=== PATIENT | female | born 1955 | race Caucasian/White ===

== ENCOUNTER 2017-12-23 14:29 | Outpatient (CLI) | payer OTHER ==
--- NOTE | 2017-12-24 13:35 | Mammography Report ---
Procedure Date: 12/23/2017 Accession Number: [id number] / [id number] Procedure: MGS - Screening Mammo Dig Bilat CPT Code: FULL RESULT: EXAM: Screening Mammo Dig Bilat DATE: 12/23/2017 2:46 PM CLINICAL HISTORY: 61-year-old nulliparous patient for screening TECHNIQUE: Bilateral CC, laterally exaggerated CC, MLO views were obtained. COMPARISON: 04/28/2011, 06/20/2008 FINDINGS: The breasts demonstrate heterogeneously dense fibroglandular parenchyma bilaterally. Coarse and punctate, typically benign calcifications are present. No suspicious masses, clustered microcalcifications, or regions of architectural distortion are identified. IMPRESSION: Benign findings RECOMMENDATION: Routine annual screening unless otherwise clinically indicated. BIRADS CATEGORY 2: Benign findings STANDARD QUALIFYING STATEMENTS: 1. This examination was reviewed with the aid of Computer-Aided Detection (CAD). 2. A negative or benign imaging report should not delay biopsy if clinically suspicious findings are present. Consider surgical consultation if warrented. More than 5% of cancers are not identified by imaging. 3. Dense breasts may obscure an underlying neoplasm.
== END 2017-12-23 14:30 | disposition home or self-care (01) ==
LOC: DI.S 14:29
PROVIDERS: ATTEND Registered Nurse
DX: Z12.31 Encounter for screening mammogram for malignant neoplasm of breast (principal)
CPT/HCPCS: 77067

== ENCOUNTER 2019-04-11 14:21 | Outpatient (CLI) | payer OTHER ==
--- NOTE | 2019-04-13 08:08 | XRAY Report ---
Reason: JAW L R Procedure Date: 04/11/2019 Accession Number: [id number] / [id number] Procedure: XRS - Mandible Bilat CPT Code: FULL RESULT: EXAM: MANDIBLE RADIOGRAPHY EXAM DATE: 04/11/2019 02:46 PM. HISTORY: Injury to jaw while carrying a wooden chair, patient tripped and chair jammed into her jaw. COMPARISONS: None. TECHNIQUE: 4 views. FINDINGS: Bones: On the AP closed mouth view, there is a subtle discontinuity suggested at the left mandibular ramus. This could be artifactual or indicate a nondisplaced fracture. Elsewhere, the mandible appears intact. Temporomandibular Joints: Normal. The temporomandibular joints are normally located and symmetric. Sinuses: Normal. No opacities or fluid levels. Other: Normal. No soft tissue swelling. IMPRESSION: Subtle discontinuity suggested of the left mandibular ramus on one view. Cannot exclude a nondisplaced fracture. This could be further evaluated by CT. RADIA
== END 2019-04-11 14:22 | disposition home or self-care (01) ==
LOC: DI.S 14:21
PROVIDERS: ATTEND Chiropractor
DX: S09.93XA Unspecified injury of face, initial encounter (principal); R68.84 Jaw pain; S13.8XXA Sprain of joints and ligaments of other parts of neck, initial encounter; M99.11 Subluxation complex (vertebral) of cervical region
CPT/HCPCS: 70110

== ENCOUNTER 2022-03-01 14:13 | Outpatient (CLI) | payer OTHER, MEDICARE | END 2022-03-01 14:14 | disposition critical access hospital (66) | LOC: EMS 14:13 | DX: S49.92XA Unspecified injury of left shoulder and upper arm, initial encounter (principal); S01.112A Laceration without foreign body of left eyelid and periocular area, initial encounter; W01.0XXA Fall on same level from slipping, tripping and stumbling without subsequent striking against object, initial encounter; Y92.511 Restaurant or cafe as the place of occurrence of the external cause; Y99.0 Civilian activity done for income or pay | CPT/HCPCS: A0425; A0427 ==

== ENCOUNTER 2022-03-01 14:39 | Emergency (ER) | payer OTHER ==
[2022-03-01] MEDS ORDERED: fentaNYL 100 MCG/2 ML VIAL IVP STA (14:48)
[2022-03-01] MEDS ORDERED: KETOROLAC 15 MG/ML VIAL IVP STA (14:49)
--- NOTE | 2022-03-01 14:52 | ED Physician Documentation ---
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 She fell onto her left shoulder and has pain and swelling there. Abrasion to the eyebrow but no other injury.) Where injury occurred: Work Timing - onset: How many hours ago (1) Timing - details: Abrupt onset, Still present Worsened by: Moving, Palpating (left shoulder) Associated symptoms: Swelling (left shoulder). No: Weakness, Numbness Contributing factors: No: Anticoagulated, Prosthetic joint Similar symptoms before: Has not had sx before Recently seen: Not recently seen Review of Systems Eyes: denies: Loss of vision, Photophobia Neurologic: denies: Focal weakness, Numbness, Altered mental status, Headache, Head injury PD PAST MEDICAL HISTORY - Past Medical History Cardiovascular: Hypertension Musculoskeletal: None - Past Surgical History Past Surgical History: Yes General: Appendectomy - Present Medications Home Medications: Ambulatory Orders Medication Instructions Recorded Confirmed lisinopriL [Lisinopril] 10 mg PO DAILY 02/23/16 02/23/16 Ibuprofen [Motrin] 400 mg PO TID #30 tablet 03/01/22 oxyCODONE [Roxicodone] 5 mg PO Q6H PRN #20 tablet 03/01/22 - Allergies Allergies/Adverse Reactions: Allergies Allergy/AdvReac Type Severity Reaction Status Date / Time naproxen Allergy Hives Verified 03/01/22 15:00 - Social History Does the pt smoke?: No Smoking Status: Former smoker Does the pt drink ETOH?: Yes Does the pt have substance abuse?: No - Immunizations Immunizations are current?: Yes PD ED PE NORMAL - Vitals Vital signs reviewed: Yes - General General: Alert and oriented X 3, Well developed/nourished - HEENT HEENT: PERRL, EOMI, Other (abrasions several small few mm sized on left forehead.) - Neck Neck: Supple, no meningeal sign, No bony TTP, No adenopathy - Cardiac Cardiac: RRR, No murmur - Respiratory Respiratory: Clear bilaterally, Other (no chestwall tenderness) - Abdomen Abdomen: Soft, Non tender - Derm Derm: Normal color, Warm and dry - Extremities Extremities: Other (holding left arm guardedly to her side. ) - Neuro Neuro: Alert and oriented X 3, No motor deficit, No sensory deficit, Normal speech Results - Vitals Vitals: Vital Signs - 24 hr 03/01/22 03/01/22 15:00 16:31 Temperature 37.0 C 37.1 C Heart Rate 92 82 Respiratory 16 16 Rate Blood Pressure 112/99 H 167/89 H O2 Saturation 97 97 Oxygen O2 Source Room air - Rads (name of study) left shoulder Radiology: Prelim report reviewed (impacted humeral neck fracture. Nonangulated. ), See rad report PD MEDICAL DECISION MAKING - ED course Complexity details: reviewed results, considered differential (fracture impacted proximal humeral neck left side. ), d/w patient Departure - Departure Disposition: 01 Home, Self Care Clinical Impression: Proximal humerus fracture Qualifiers: Encounter type: initial encounter Fracture type: closed Fracture morphology: other fracture Fracture alignment: nondisplaced Laterality: left Qualified Code(s): S42.295A - Other nondisplaced fracture of upper end of left humerus, initial encounter for closed fracture Accidental fall Qualifiers: Encounter type: initial encounter Qualified Code(s): W19.XXXA - Unspecified fall, initial encounter Condition: Stable Record reviewed to determine appropriate education?: Yes Instructions: ED Fx Shoulder Prescriptions: Ibuprofen [Motrin] 400 mg PO TID #30 tablet oxyCODONE [Roxicodone] 5 mg PO Q6H PRN #20 tablet PRN Reason: Pain Comments: You do have a fracture of the shoulder portion of the humerus which is the upper arm bone. It is not out of place and should heal with time and just less motion with use of a sling. Its okay to have the sling off briefly for showers changing close or similar. You will want to have it on much of the rest of the time to reduce the amount of motion. Anti-inflammatories such as ibuprofen 3 times daily with food for the next week or so. To that add Tylenol every 4-6 hours if needed for pain. To that add oxycodone every 6 hours if needed for worse pain. Follow-up with orthopedics in about 7 to 10 days. Call Wednesday for an appointment. At that point though we will see if its holding proper position and starting to heal up well enough and whether you can advance exercises and slight range of motion. For now do not worry about any exercises or therapy but just allow the swelling to go down and early healing. Ice or cool towels to the area periodically tonight and tomorrow for helping reduce swelling. This will be hurting a fair amount initially and should decrease as the swelling goes down. Off work for likely 4 to 5 days. You then will need another month of just having the arm in the sling and no lifting push pull or overhead reaching for sure. Progress or advance activity or exercises per the orthopedist on follow-up. I sent your prescriptions to [facility] pharmacy in [place]. My narcotic instructions I am prescribing a short course of narcotic pain medication for you. These are potentially dangerous and addictive medications that should be used carefully. These medications may constipate you. Take an jebm-gnd-rhlqqat stool softener such as docusate twice daily with plenty of water while taking these medicati ons. If you go 24 hours without a bowel movement, take lzwf-svv-qvchncf MiraLAX, per package instructions. Do not drink or drive while taking these medications. If you received narcotic or sedating medications while in the emergency department do not drive for 24 hours. Store this medication in a safe, secure place and out of reach of children. It is a violation of federal law to give or sell this medication to another person or to use in a manner other than prescribed. The ED will not refill narcotic prescriptions, including prescriptions lost or stolen. You can dispose of unwanted medications at the [facility]'s office or at several pharmacies such as [facility]. Forms: Activity restrictions Discharge Date/Time: 03/01/22 16:33
--- NOTE | 2022-03-01 15:32 | XRAY Report ---
PROCEDURE: Humerus LT INDICATIONS: fall to left shoulder TECHNIQUE: 2 views of the humerus were acquired. COMPARISON: None. FINDINGS: Bones: Displaced impacted fracture at the surgical neck of the humerus. No suspicious bony lesions. Soft tissues: No suspicious soft tissue calcifications. IMPRESSION: Minimally displaced impacted fracture of the proximal humerus. Reviewed by: Bob Jason MD on 03/01/2022 2:31 PM ALEYDA Approved by: Bob Jason MD on 03/01/2022 2:31 PM ALEYDA Station ID: [id number]
[2022-03-01 16:33] VITALS: BP 167/89
== END 2022-03-01 16:33 | disposition home or self-care (01) ==
LOC: EDUNIT# → ED 14:39
DX: S42.295A Other nondisplaced fracture of upper end of left humerus, initial encounter for closed fracture (principal); S42.212A Unspecified displaced fracture of surgical neck of left humerus, initial encounter for closed fracture; W01.0XXA Fall on same level from slipping, tripping and stumbling without subsequent striking against object, initial encounter; Y93.G9 Activity, other involving cooking and grilling; Y92.511 Restaurant or cafe as the place of occurrence of the external cause; Y99.0 Civilian activity done for income or pay; Z87.891 Personal history of nicotine dependence
CPT/HCPCS: 1040M; 73060; 96374; 96375; 99283; 99284

== ENCOUNTER 2022-03-09 08:00 | Outpatient (CLI) | payer OTHER ==
--- NOTE | 2022-03-09 10:31 | XRAY Report ---
PROCEDURE: Shoulder 3 View LT INDICATIONS: LEFT SHOULDER FX TECHNIQUE: 4 views of the shoulder were acquired. COMPARISON: X-ray left humerus, 03/01/2022. FINDINGS: Bones: There is a comminuted humeral head and neck fracture with mild impaction and displacement. Com pared to last exam, there is stable alignment. No suspicious bony lesions. Visualized ribs appear in tact. Soft tissues: No suspicious soft tissue calcifications. IMPRESSION: Stable proximal left humeral fracture. Reviewed by: Miguel Solano MD on 03/09/2022 10:29 AM PDT Approved by: Miguel Solano MD on 03/09/2022 10:29 AM PDT Station ID: [id number]
== END 2022-03-09 23:59 | disposition home or self-care (01) ==
LOC: DI.WOS 08:00
PROVIDERS: ATTEND Orthopaedic Surgery
DX: S42.292A Other displaced fracture of upper end of left humerus, initial encounter for closed fracture (principal)

== ENCOUNTER 2022-03-17 08:00 | Outpatient (CLI) | payer OTHER ==
--- NOTE | 2022-03-18 08:35 | XRAY Report ---
PROCEDURE: Shoulder 2 View LT INDICATIONS: SHOULDER FX TECHNIQUE: 2 views of the shoulder were acquired. COMPARISON: None. FINDINGS: When compared with 03/09/2022 exam, there is no significant change in the appearance of comminuted mi ldly displaced to fractures of the left humeral head and neck. There is no evidence of significant in terval healing. IMPRESSION: No significant change in appearance of left humeral head and neck fracture. Reviewed by: Gigi Ulloa MD on 03/18/2022 8:34 AM PDT Approved by: Gigi Ulloa MD on 03/18/2022 8:34 AM PDT Station ID: [id number]
== END 2022-03-17 23:59 | disposition home or self-care (01) ==
LOC: DI.WOS 08:00
PROVIDERS: ATTEND Orthopaedic Surgery
DX: S42.232A 3-part fracture of surgical neck of left humerus, initial encounter for closed fracture (principal)

== ENCOUNTER 2022-04-16 08:00 | Outpatient (CLI) | payer OTHER ==
--- NOTE | 2022-04-16 14:17 | XRAY Report ---
PROCEDURE: Shoulder 2 View LT INDICATIONS: LEFT SHOULDER FRACTURE TECHNIQUE: 2 views of the shoulder were acquired. COMPARISON: 03/17/2022. FINDINGS/IMPRESSION: 1. Small amount of bridging bony callus formation since prior study, with otherwise unchanged appeara nce of comminuted left humeral head/neck fractures. Reviewed by: Gigi Ulloa MD on 04/16/2022 2:15 PM PDT Approved by: Gigi Ulloa MD on 04/16/2022 2:15 PM PDT Station ID: [id number]
== END 2022-04-16 23:59 | disposition home or self-care (01) ==
LOC: DI.WOS 08:00
PROVIDERS: ATTEND Orthopaedic Surgery
DX: S42.232D 3-part fracture of surgical neck of left humerus, subsequent encounter for fracture with routine healing (principal)

== ENCOUNTER 2022-05-07 13:37 | Outpatient (CLI) | payer OTHER ==
--- NOTE | 2022-05-07 17:00 | XRAY Report ---
PROCEDURE: Shoulder 2 View LT INDICATIONS: LEFT SHOULDER FRACTURE TECHNIQUE: 2 views of the shoulder were acquired. COMPARISON: 2 views of the shoulder dated 04/16/2022, 03/17/2022 FINDINGS: Bones: Proximal humeral fracture is redemonstrated. Increased callus is visualized when compared with the prior study. Soft tissues: No suspicious soft tissue calcifications. IMPRESSION: Continued interval healing of a proximal humeral fracture. Reviewed by: Laura Kerr MD on 05/07/2022 4:59 PM PST Approved by: Laura Kerr MD on 05/07/2022 4:59 PM PST Station ID: [id number]
== END 2022-05-07 13:38 | disposition home or self-care (01) ==
LOC: DI.WOS 13:37
PROVIDERS: ATTEND Orthopaedic Surgery
DX: S42.232D 3-part fracture of surgical neck of left humerus, subsequent encounter for fracture with routine healing (principal)

== ENCOUNTER 2022-09-08 13:25 | Outpatient (CLI) | payer OTHER, MEDICARE ==
--- NOTE | 2022-09-08 15:47 | XRAY Report ---
PROCEDURE: Shoulder 3 View LT INDICATIONS: LEFT SHOULDER FRACTURE TECHNIQUE: 4 views of the shoulder were acquired. COMPARISON: 07/09/2022 FINDINGS: Bones: No significant change in alignment of proximal humeral fracture. Fracture lines are less dist inct, compatible with healing. No suspicious bony lesions. Visualized ribs appear intact. Soft tissues: No suspicious soft tissue calcifications. IMPRESSION: Healing left humeral fracture. Reviewed by: Yeimy James MD on 09/08/2022 3:46 PM PDT Approved by: Yeimy James MD on 09/08/2022 3:46 PM PDT Station ID: [id number]
== END 2022-09-08 13:27 | disposition home or self-care (01) ==
LOC: DI.WOS 13:25
PROVIDERS: ATTEND Orthopaedic Surgery
DX: S42.232D 3-part fracture of surgical neck of left humerus, subsequent encounter for fracture with routine healing (principal)

== ENCOUNTER 2022-12-29 11:41 | Outpatient (CLI) | payer MEDICARE, OTHER ==
--- NOTE | 2022-12-29 21:08 | XRAY Report ---
PROCEDURE: Chest 2 View X-Ray INDICATIONS: BREATH SOUNDS ABNORMAL TECHNIQUE: 2 views of the chest were acquired. COMPARISON: None. FINDINGS: Surgical changes and devices: None. Lungs and pleura: No pleural effusions or pneumothorax. Lungs are mildly hyperexpanded and clear. Mediastinum: Mediastinal contours appear normal. Heart size is normal. Bones and chest wall: No suspicious bony lesions. Overlying soft tissues appear unremarkable. IMPRESSION: No acute cardiopulmonary process. Hyperexpanded lungs can be seen in the setting of COPD. Reviewed by: Bob Jason MD on 12/29/2022 9:07 PM PDT Approved by: Bob Jason MD on 12/29/2022 9:07 PM PDT Station ID: [id number]
== END 2022-12-29 11:42 | disposition home or self-care (01) ==
LOC: DI.S 11:41
PROVIDERS: ATTEND Nurse Practitioner Acute Care
DX: R09.89 Other specified symptoms and signs involving the circulatory and respiratory systems (principal)

== ENCOUNTER 2023-01-11 12:46 | Outpatient (CLI) | payer MEDICARE ==
--- NOTE | 2023-01-11 15:15 | CT Report ---
PROCEDURE: Low Dose Lung Cancer Screen INDICATIONS: SCREENING FOR LUNG CA TECHNIQUE: A CT scan of the chest was performed. Intravenous contrast media was not administered. Images were re corded and evaluated at appropriate window settings. Reformats: axial MIP of the chest, coronal and s agittal. For radiation dose reduction, the following was used: automated exposure control, adjustment of mA and/or kV according to patient size. COMPARISON: None. FINDINGS: Image quality: Excellent. Prior cancer history: No. Lungs and pleura: No pleural effusions. No pneumothorax. No suspicious pulmonary nodules which requi re follow up. Dependent atelectasis and scarring. Mild paraseptal and centrilobular emphysematous godwin nges. Mediastinum: Heart size is normal. No pericardial effusion. No large vessel abnormality. Extensive at herosclerotic vascular calcifications. No mediastinal adenopathy by size criteria. Three vessel trung nary artery calcifications. Chest wall and lower neck: Thyroid is unremarkable. No axillary or supraclavicular adenopathy by size . Calcifications within the bilateral breasts. Bones: No aggressive osseous abnormality. Degenerative changes of the spine. Decreased osseous minera lization. Upper Abdomen: Unremarkable. IMPRESSION: Lung RAD: 1 - Negative. Recommendation: Continue annual screening in 12 Months with LDCT Non-Lung Significant Findings: Coronary Arterial Calcification - Moderate or Severe. Consider cardiol ogy referral. Small bilateral breast calcifications. Upon correlation with age-appropriate mammography. Reviewed by: Garrett Hancock MD on 01/11/2023 3:13 PM PDT Approved by: Garrett Hancock MD on 01/11/2023 3:13 PM PDT Station ID: [id number]
== END 2023-01-11 12:47 | disposition home or self-care (01) ==
LOC: DI 12:46
PROVIDERS: ATTEND Nurse Practitioner Acute Care
DX: Z12.2 Encounter for screening for malignant neoplasm of respiratory organs (principal); I25.10 Atherosclerotic heart disease of native coronary artery without angina pectoris; J43.2 Centrilobular emphysema

== ENCOUNTER 2023-01-12 12:41 | Outpatient (CLI) | payer MEDICARE ==
--- NOTE | 2023-01-13 09:24 | Mammography Report ---
BILATERAL DIGITAL SCREENING MAMMOGRAM 3D/2D WITH EXAGGERATED CC: 01/12/2023 CLINICAL: Routine screening. Comparison is made to exams dated: 12/23/2017 mammogram, 04/28/2011 mammogram, and 06/20/2008 mammogram - [facility]. Both breasts are heterogeneously dense, which may obscure small masses (category c / 51-75% glandular tissue). There are benign calcifications in both breasts. No significant masses, calcifications, or other findings are seen in either breast. There has been no significant interval change. IMPRESSION: BENIGN There is no mammographic evidence of malignancy. A 1 year screening mammogram is recommended. Based on the Tyrer Cuzick model (a risk assessment model) the patients lifetime risk is 9.6% and her 10 year risk is 5.7%. According to the ACR, ACS, and NCCN guidelines, an annual breast MRI exam madelin g with mammogram is recommended if the patients lifetime risk is 20% or greater. This exam was interpreted at Station ID: [id number]. NOTE: For mammograms, a report in lay terms will be sent to the patient. Approximately 15% of breast malignancies will not be visualized mammographically. In the management of a palpable breast mass, a negative mammogram must not discourage biopsy of a clinically suspicious lesion. Electronically Signed By: Izzy zapata/debra:01/12/2023 17:42:08 letter sent: No_Letter ACR BI-RADS Category 2: Benign Finding(s) 3342F PARENCHYMAL PATTERN: (D) - The breast(s) demonstrate(s) heterogeneously dense fibroglandular stefany marshall. BI-RADS CATEGORY: (2) - 2 Mammogram [id number] 1 year screening LATERALITY: (B)
== END 2023-01-12 12:42 | disposition home or self-care (01) ==
LOC: DI.S 12:41
PROVIDERS: ATTEND Nurse Practitioner Acute Care
DX: Z12.31 Encounter for screening mammogram for malignant neoplasm of breast (principal)

== ENCOUNTER 2023-01-19 13:18 | Outpatient (CLI) | payer MEDICARE | END 2023-01-19 13:19 | disposition home or self-care (01) | LOC: RT 13:18 | PROVIDERS: ATTEND Nurse Practitioner Acute Care | DX: J98.4 Other disorders of lung (principal) | CPT/HCPCS: 94060; 94729 ==

== ENCOUNTER 2023-02-17 12:38 | Outpatient (CLI) | payer MEDICARE ==
--- NOTE | 2023-02-18 12:33 | DEXA Report ---
PROCEDURE: Dexa Spine and/or Hip INDICATIONS: POST MENOPAUSAL TECHNIQUE: Dual energy x-ray absorptiometry (DXA) was performed on a [employer] System. Regions measur ed are the AP Spine, femoral neck, and if needed forearm. COMPARISON: 04/28/2011 FINDINGS: Lumbar Spine: Bone Mineral Density 1.395 g/cm/cm,T score 1.8. Previously 0.2 Left Femoral Neck: Bone Mineral Density 0.631 g/cm/cm, T score -2.9. Previously -2.0 Left Hip: Bone Mineral Density 0.61 g/cm/cm,T score -2.6. Previously -1.1 (T score greater or equal to -1.0: NORMAL) (T score from -1.1 to -2.4: OSTEOPENIA) (T score less than or equal to -2.5 to: OSTEOPOROSIS) Impression: Worsening left hip osteoporosis Patients with diagnosis of osteoporosis or osteopenia should have regular bone mineral density assess ment. For those eligible for Medicare, routine testing is allowed once every 2 years. Testing frequ ency can be increased for patients who have rapidly progressing disease or for those who are receivin g medical therapy to restore bone mass. Reviewed by: Eb Galvan MD on 02/18/2023 11:32 AM ALEYDA Approved by: Eb Galvan MD on 02/18/2023 11:32 AM ALEYDA Station ID: [id number]
== END 2023-02-17 12:39 | disposition home or self-care (01) ==
LOC: DI 12:38
PROVIDERS: ATTEND Nurse Practitioner Acute Care
DX: M81.0 Age-related osteoporosis without current pathological fracture (principal); Z78.0 Asymptomatic menopausal state

== ENCOUNTER 2023-03-02 08:00 | Outpatient (CLI) | payer OTHER, MEDICARE ==
--- NOTE | 2023-03-02 17:49 | XRAY Report ---
PROCEDURE: Shoulder 3 View LT INDICATIONS: LEFT SHOULDER FX TECHNIQUE: 4 views of the shoulder were acquired. COMPARISON: Left shoulder radiographs 09/08/2022 and 03/09/2022 FINDINGS: Bones: Proximal humeral fracture appears to be healed with mild residual osseous deformity. Relative lucency within the humeral head is likely related to the prior trauma rather than an osseous lesion. Alignment is unchanged. Soft tissues: Atherosclerotic vascular calcifications are present. The visualized lungs are within normal limits. IMPRESSION: Stable alignment of the left proximal humeral fracture, which now appears healed. Reviewed by: Bob Jason MD on 03/02/2023 5:48 PM PDT Approved by: Bob Jason MD on 03/02/2023 5:48 PM PDT Station ID: [id number]
== END 2023-03-02 23:59 | disposition home or self-care (01) ==
LOC: DI.WOS 08:00
PROVIDERS: ATTEND Orthopaedic Surgery
DX: S42.232D 3-part fracture of surgical neck of left humerus, subsequent encounter for fracture with routine healing (principal)

== ENCOUNTER 2023-08-05 11:34 | Outpatient (CLI) | payer MEDICARE ==
[2023-08-06 08:11] LABS: VITAMIN D 25-HYDROXY 29.6 ng/mL (30.0-100.0)
[2023-08-06 18:07] LABS: CALCIUM IONIZED SERUM 4.7 mg/dL (4.5-5.6)
== END 2023-08-05 11:35 | disposition home or self-care (01) ==
LOC: LAB.S 11:34
PROVIDERS: ATTEND Nurse Practitioner Acute Care
DX: M81.0 Age-related osteoporosis without current pathological fracture (principal)
CPT/HCPCS: 36415; 82306; 82330

== ENCOUNTER 2023-10-12 08:00 | Outpatient (CLI) | payer MEDICARE | END 2023-10-12 23:59 | disposition home or self-care (01) | LOC: LAB.N 08:00 | PROVIDERS: ATTEND Registered Nurse | DX: L98.9 Disorder of the skin and subcutaneous tissue, unspecified (principal) | CPT/HCPCS: 87255 ==

== ENCOUNTER 2024-01-03 07:45 | Outpatient (CLI) | payer MEDICARE ==
[2024-01-03 14:36] LABS: BASOPHILS % (AUTO) 0.3 %; EOSINOPHILS % (AUTO) 0.3 %; LYMPHOCYTES % (AUTO) 39.6 %; MEAN CORPUSCULAR HEMOGLOBIN 41.1 pg (27.0-31.0); MEAN CORPUSCULAR HGB CONC 33.1 g/dL (32.0-36.0); MONOCYTES % (AUTO) 24.2 %; NEUTROPHILS % (AUTO) 33.9 %; RED BLOOD COUNT 1.29 10^6/uL (4.20-5.40); RED CELL DISTRIBUTION WIDTH 18.3 % (12.0-15.0); WHITE BLOOD COUNT 3.5 x10^3/uL (4.8-10.8)
[2024-01-03 14:44] LABS: ALBUMIN/GLOBULIN RATIO 1.6 (1.0-2.2); ALKALINE PHOSPHATASE 71 IU/L (42-121); ALT ALANINE AMINOTRANSFERASE 22 IU/L (10-60); AST ASPARTATE AMINOTRANSFERASE 40 IU/L (10-42); BILIRUBIN,TOTAL 1.7 mg/dL (0.2-1.0); BUN - BLOOD UREA NITROGEN 10 mg/dL (6-20); CARBON DIOXIDE - CO2 27 mmol/L (21-32); CHLORIDE 101 mmol/L (101-111); CHOL/HDL RATIO 2.2 (<4.4); CHOLESTEROL 88 mg/dL; CREATININE 0.5 mg/dL (0.6-1.3); GFR - MDRD 122 (>89); GLUCOSE 101 mg/dL (74-104); HDL CHOLESTEROL 40 mg/dL; LDL CHOLESTEROL,CALCULATED 36 mg/dL; LDL/HDL RATIO 0.9 (<4.4); SODIUM 132 mmol/L (135-145); TOTAL PROTEIN 6.5 g/dL (6.4-8.9); TRIGLYCERIDES 58 mg/dL; VLDL CHOLESTEROL 12 mg/dL
[2024-01-03 14:48] LABS: HGB - HEMOGLOBIN 5.3 g/dL (12.0-16.0)
[2024-01-03 14:49] LABS: PLT - PLATELET COUNT 17 10^3/uL (130-450)
[2024-01-03 14:50] LABS: ABNORMAL LYMPHS % (MANUAL) 0 %
[2024-01-03 14:57] LABS: THYROID STIMULATING HORMONE 1.52 uIU/mL (0.34-5.60)
[2024-01-03 17:19] LABS: BAND NEUTROPHILS % (MANUAL) 4 %; DIFFERENTIAL COMMENT MANUAL DIFFERENTIAL; LYMPHOCYTES # (MANUAL) 2.4 10^3/uL (1.5-3.5); LYMPHOCYTES % (MANUAL) 66 %; MONOCYTES # (MANUAL) 0.2 10^3/uL (0.0-1.0); NEUTROPHILS # (MANUAL) 0.9 10^3/uL (1.5-6.6); NUCLEATED RBC (MANUAL) 49 %; PLATELET ESTIMATE, MANUAL DECREASED (<130,000) (NORMAL); PLATELET MORPHOLOGY NORMAL APPEARANCE (NORMAL); REACTIVE LYMPHS % (MANUAL) 3 %
[2024-01-04 11:11] LABS: CALCIUM IONIZED SERUM 4.6 mg/dL (4.5-5.6)
== END 2024-01-03 07:46 | disposition home or self-care (01) ==
LOC: LAB.S 07:45
PROVIDERS: ATTEND Nurse Practitioner Acute Care
DX: M81.0 Age-related osteoporosis without current pathological fracture (principal); Z13.228 Encounter for screening for other metabolic disorders; Z13.220 Encounter for screening for lipoid disorders; Z13.29 Encounter for screening for other suspected endocrine disorder; Z13.0 Encounter for screening for diseases of the blood and blood-forming organs and certain disorders involving the immune mechanism
CPT/HCPCS: 36415; 80053; 80061; 82306; 82330; 83721; 84443; 85025

== ENCOUNTER 2024-01-25 19:51 | Emergency (ER) | payer MEDICARE ==
[2024-01-25 21:09] LABS: HCT - HEMATOCRIT 20.8 % (37.0-47.0); LYMPHOCYTES % (AUTO) 48.2 %; MEAN CORPUSCULAR HEMOGLOBIN 32.4 pg (27.0-31.0); MEAN CORPUSCULAR HGB CONC 32.2 g/dL (32.0-36.0); MEAN CORPUSCULAR VOLUME 100.5 fL (81.0-99.0); MONOCYTES % (AUTO) 5.5 %; NEUTROPHILS % (AUTO) 45.3 %; RED BLOOD COUNT 2.07 10^6/uL (4.20-5.40); RED CELL DISTRIBUTION WIDTH 21.7 % (12.0-15.0)
[2024-01-25 21:12] LABS: HGB - HEMOGLOBIN 6.7 g/dL (12.0-16.0); PLT - PLATELET COUNT 5 10^3/uL (130-450)
[2024-01-25 21:13] LABS: ABNORMAL LYMPHS % (MANUAL) 0 %; BAND NEUTROPHILS % (MANUAL) 0 %
[2024-01-25 21:17] LABS: ALBUMIN 4.1 g/dL (3.2-5.5); ALBUMIN/GLOBULIN RATIO 1.9 (1.0-2.2); BILIRUBIN,TOTAL 1.3 mg/dL (0.2-1.0); CALCIUM 8.8 mg/dL (8.5-10.3); CREATININE 0.6 mg/dL (0.6-1.3); POTASSIUM 3.8 mmol/L (3.5-4.5); TOTAL PROTEIN 6.3 g/dL (6.4-8.9)
--- NOTE | 2024-01-25 21:48 | ED Physician Documentation ---
History of Present Illness - Stated complaint Stated Complaint: ABNORMAL LABS - Chief complaint Chief Complaint: General - History obtained from History obtained from: Patient - Additonal information Additional information: The patient comes to the emergency department chief complaint of "they told me to come in because my platelets are low". The patient has been treated for leukemia with chemotherapy and has been struggling with pancytopenia. She had to have a platelet transfusion last week when her platelets 4. Apparently, they were 8 earlier today and the covering physician for her oncologist told her to come here because it is after hours. The patient states she went to the [facility] last time. She denies active bleeding. She states she actually feels completely fine. No other complaints at this time. PD PAST MEDICAL HISTORY - Past Medical History Past Medical History: Yes Cardiovascular: Hypertension Musculoskeletal: None - Past Surgical History Past Surgical History: Yes General: Appendectomy - Present Medications Home Medications: Ambulatory Orders Medication Instructions Recorded Confirmed lisinopriL [Lisinopril] 10 mg PO DAILY 02/23/16 02/23/16 Ibuprofen [Motrin] 400 mg PO TID #30 tablet 03/01/22 oxyCODONE [Roxicodone] 5 mg PO Q6H PRN #20 tablet 03/01/22 - Allergies Allergies/Adverse Reactions: Allergies Allergy/AdvReac Type Severity Reaction Status Date / Time bee venom protein (honey bee) Allergy Edema Verified 01/25/24 20:08 naproxen Allergy Hives Verified 03/01/22 15:00 Penicillins Allergy Hives Verified 01/25/24 20:08 - Social History Does the pt smoke?: No Smoking Status: Never smoker Does the pt drink ETOH?: Yes Does the pt have substance abuse?: No - Immunizations Immunizations are current?: Yes - POLST Patient has POLST: No PD ED PE NORMAL - Vitals Vital signs reviewed: Yes - General General: Alert and oriented X 3, No acute distress, Well developed/nourished - HEENT HEENT: Atraumatic, PERRL, EOMI, Moist mucous membranes - Neck Neck: Supple, no meningeal sign - Cardiac Cardiac: RRR, No murmur, Strong equal pulses - Respiratory Respiratory: No respiratory distress, Clear bilaterally - Abdomen Abdomen: Soft, Non tender, Non distended - Derm Derm: Normal color, Warm and dry, No rash, Other ([place] nailbeds, no contusions, ecchymosis, purpura or petechiae on skin.) - Extremities Extremities: No deformity, No edema - Neuro Neuro: Other (Alert, grossly intact.) - Psych Psych: Normal mood, Normal affect Results - Vitals Vitals: Vital Signs - 24 hr 01/25/24 01/25/24 01/25/24 20:01 22:07 22:47 Temperature 36.9 C 36.9 C 37.3 C Heart Rate 88 79 Heart Rate [ 76 Monitoring electrodes] Respiratory 18 22 16 Rate Blood Pressure 132/62 H 142/67 H Blood Pressure [Right] O2 Saturation 98 93 96 If not protocol : Oxygen Flow, liters/minute 01/25/24 01/25/24 01/26/24 23:06 23:26 00:00 Temperature 36.9 C 37.1 C 36.9 C Heart Rate Heart Rate [ 72 71 79 Monitoring electrodes] Respiratory 18 20 22 Rate Blood Pressure Blood Pressure 134/73 H 137/72 H 142/67 H [Right] O2 Saturation 97 93 93 If not protocol : Oxygen Flow, liters/minute 01/26/24 01/26/24 01/26/24 00:32 00:46 01:04 Temperature 36.8 C 36.9 C 36.5 C Heart Rate Heart Rate [ 73 74 75 Monitoring electrodes] Respiratory 20 20 18 Rate Blood Pressure Blood Pressure 133/67 H 133/67 H 140/67 H [Right] O2 Saturation 92 99 99 If not protocol 0 : Oxygen Flow, liters/minute 01/26/24 01/26/24 01/26/24 01:20 01:49 01:57 Temperature 37.3 C 36.8 C 36.8 C Heart Rate Heart Rate [ 73 70 75 Monitoring electrodes] Respiratory 16 16 18 Rate Blood Pressure Blood Pressure 140/62 H 147/82 H 141/78 H [Right] O2 Saturation 97 97 97 If not protocol 0 0 : Oxygen Flow, liters/minute 01/26/24 01:58 Temperature 36.8 C Heart Rate 75 Heart Rate [ Monitoring electrodes] Respiratory 18 Rate Blood Pressure 141/82 H Blood Pressure [Right] O2 Saturation 97 If not protocol : Oxygen Flow, liters/minute Oxygen O2 Source Room air - Labs Labs: Laboratory Tests 01/25/24 01/25/24 01/25/24 21:00 21:00 21:21 WBC 2.0 L* RBC 2.07 L Hgb 6.7 L* Hct 20.8 L MCV 100.5 H MCH 32.4 H MCHC 32.2 RDW 21.7 H Plt Count 5 L* Neut # (Auto) Not Reportable Lymph # (Auto) Not Reportable [place] # (Auto) Not Reportable Eos # (Auto) Not Reportable Baso # (Auto) Not Reportable Absolute Nucleated RBC Not Reportable Total Counted 100 Band Neuts % (Manual) 0 Reactive Lymphs % (Man) 6 Abnorm Lymph % (Manual) 0 Nucleated RBC % Not Reportable Neutrophils # (Manual) 0.6 L Lymphocytes # (Manual) 1.3 L Monocytes # (Manual) 0.1 Eosinophils # (Manual) 0.0 Basophils # (Manual) 0.0 Nucleated RBCs 23 Differential Comment MANUAL DIFFERENTIAL Platelet Estimate DECREASED (<130,000) Platelet Morphology NORMAL APPEARANCE RBC Morph Micro Appear 3+ HYPOCHROMASIA Sodium 135 Potassium 3.8 Chloride 104 Carbon Dioxide 25 Anion Gap 6.0 BUN 14 Creatinine 0.6 Estimated GFR (MDRD) 99 Glucose 95 Calcium 8.8 Total Bilirubin 1.3 H AST 11 ALT 8 L Alkaline Phosphatase 65 Total Protein 6.3 L Albumin 4.1 Globulin 2.2 Albumin/Globulin Ratio 1.9 Lipase 29 Blood Type O POSITIVE Antibody Screen NEGATIVE Crossmatch IS Only See Detail PD Medical Decision Making - ED course Complexity details: reviewed results, re-evaluated patient, considered differential, d/w patient ED course: The patient was worked up with labs here and found to have a platelet count of 5. She also had a hemoglobin of 6.7. A unit of packed red blood cells and a unit of a pheresis platelets were ordered and transfused. The patient had had some itching with platelets previously and so an oral dose of Benadryl was given, which she states has worked well before.The patient received a unit each of packed red blood cells and platelets and was found to be feeling well and ready for discharge. We have discussed that she needs to call her oncologist first thing in the morning to discuss her blood counts and treatment going forward. We have discussed the usual indications for return including onset of bleeding. Departure - Departure Disposition: 01 Home, Self Care Clinical Impression: Drug-induced pancytopenia Condition: Stable Instructions: Thrombocytopenia, Bleeding Chemo Prevent Comments: Your platelet count earlier today was 8 but it was 5 here in the emergency department. Your hemoglobin was 6.7 and your white blood cell count was 2. You were given transfusions of both platelets and packed red blood cells and this should bring your numbers up to more acceptable level. Please call your oncologist first thing in the morning to check in and make an appointment to discuss ongoing treatment of your low blood cells. Forms: PCP List Discharge Date/Time: 01/26/24 01:59
[2024-01-25 22:05] LABS: LYMPHOCYTES # (MANUAL) 1.3 10^3/uL (1.5-3.5); LYMPHOCYTES % (MANUAL) 60 %; MONOCYTES # (MANUAL) 0.1 10^3/uL (0.0-1.0); NEUTROPHILS # (MANUAL) 0.6 10^3/uL (1.5-6.6); NUCLEATED RBC (MANUAL) 23 %; REACTIVE LYMPHS % (MANUAL) 6 %
[2024-01-25] MEDS: diphenhydrAMINE 25 MG CAPSULE PO STA (22:05)
[2024-01-25 22:06] LABS: DIFFERENTIAL COMMENT MANUAL DIFFERENTIAL; PLATELET ESTIMATE, MANUAL DECREASED (<130,000) (NORMAL); PLATELET MORPHOLOGY NORMAL APPEARANCE (NORMAL)
[2024-01-26 01:34] VITALS: O2SAT 97
[2024-01-26 02:04] VITALS: BP 141/82
== END 2024-01-26 01:59 | disposition home or self-care (01) ==
LOC: ED 19:51
DX: D61.811 Other drug-induced pancytopenia (principal); T45.1X5A Adverse effect of antineoplastic and immunosuppressive drugs, initial encounter; C95.90 Leukemia, unspecified not having achieved remission; I10 Essential (primary) hypertension; Z79.60 Long term (current) use of unspecified immunomodulators and immunosuppressants
CPT/HCPCS: 36415; 36430; 80053; 83690; 85025; 86850; 86900; 86901; 86920; 99283; 99285; A9270; P9016; P9037

== ENCOUNTER 2024-02-28 12:33 | Outpatient (CLI) | payer MEDICARE | END 2024-02-28 23:59 | disposition critical access hospital (66) | LOC: EMS 12:33 | DX: R55 Syncope and collapse (principal) | CPT/HCPCS: A0425; A0427 ==

== ENCOUNTER 2024-02-28 13:08 | Emergency (ER) | payer MEDICARE ==
--- NOTE | 2024-02-28 13:18 | ED Physician Documentation ---
History of Present Illness - Stated complaint Stated Complaint: SYNCOPE - History obtained from History obtained from: Patient, EMS - Additonal information Additional information: This is a 68-year-old woman who presents by ambulance for the evaluation of syncope. Recent diagnosis of AML getting chemotherapy at [facility]. She was in her usual state of health and she was walking by the table and started to feel dizzy. Subsequently she syncopized for about 30 seconds and was aided to the ground by her partner without injury. She feels back to normal now. There was no chest pain or trouble breathing with this. PD PAST MEDICAL HISTORY - Past Medical History Cardiovascular: Hypertension Musculoskeletal: None - Past Surgical History Past Surgical History: Yes General: Appendectomy - Present Medications Home Medications: Ambulatory Orders Medication Instructions Recorded Confirmed lisinopriL [Lisinopril] 10 mg PO DAILY 02/23/16 02/23/16 Ibuprofen [Motrin] 400 mg PO TID #30 tablet 03/01/22 oxyCODONE [Roxicodone] 5 mg PO Q6H PRN #20 tablet 03/01/22 - Allergies Allergies/Adverse Reactions: Allergies Allergy/AdvReac Type Severity Reaction Status Date / Time bee venom protein (honey bee) Allergy Edema Verified 02/28/24 13:16 naproxen Allergy Hives Verified 02/28/24 13:16 Penicillins Allergy Hives Verified 02/28/24 13:16 - Social History Does the pt smoke?: No Smoking Status: Never smoker Does the pt drink ETOH?: Yes Does the pt have substance abuse?: No - Immunizations Immunizations are current?: Yes - POLST Patient has POLST: No PD ED PE NORMAL - Vitals Vital signs reviewed: Yes - General General: Alert and oriented X 3, No acute distress - HEENT HEENT: PERRL, EOMI - Neck Neck: Supple, no meningeal sign, No bony TTP - Cardiac Cardiac: RRR (Subtle systolic heart murmur that she says has been worked up and is benign) - Respiratory Respiratory: No respiratory distress, Clear bilaterally - Abdomen Abdomen: Normal bowel sounds, Soft, Non tender - Extremities Extremities: Other (Multiple purpura on the extremities) - Neuro Neuro: Alert and oriented X 3, Normal speech Eye Opening: Spontaneous Motor: Obeys Commands Verbal: Oriented GCS Score: 15 - Psych Psych: Normal mood, Normal affect Results - Vitals Vitals: Vital Signs - 24 hr 02/28/24 02/28/24 02/28/24 13:16 13:58 14:19 Temperature 36.8 C Heart Rate 77 80 73 Heart Rate [ Apical] Respiratory 16 16 16 Rate Blood Pressure 134/90 H 147/80 H Blood Pressure [Right Brachial artery] O2 Saturation 99 95 100 02/28/24 02/28/24 02/28/24 14:30 15:00 15:30 Temperature Heart Rate 73 74 95 Heart Rate [ Apical] Respiratory 16 20 20 Rate Blood Pressure 147/80 H 148/71 H 164/88 H Blood Pressure [Right Brachial artery] O2 Saturation 95 95 97 02/28/24 02/28/24 02/28/24 16:00 16:30 17:00 Temperature Heart Rate 104 H 97 98 Heart Rate [ Apical] Respiratory 25 H 21 21 Rate Blood Pressure 154/92 H 162/66 H 157/89 H Blood Pressure [Right Brachial artery] O2 Saturation 97 97 98 02/28/24 02/28/24 02/28/24 17:05 17:11 17:26 Temperature 39.0 C H 38.8 C H 38.9 C H Heart Rate Heart Rate [ 110 H 101 H 100 Apical] Respiratory 25 H 23 28 H Rate Blood Pressure Blood Pressure 162/66 H 157/89 H 154/72 H [Right Brachial artery] O2 Saturation 97 97 96 02/28/24 17:30 Temperature Heart Rate 93 Heart Rate [ Apical] Respiratory 25 H Rate Blood Pressure 147/87 H Blood Pressure [Right Brachial artery] O2 Saturation 97 Oxygen O2 Source Room air - EKG (time done) 1313 EKG releavant findings:: EKG personally interpreted by author of this note. Relevant findings are: Rate: Rate (enter#) (81) Rhythm: NSR, LAE Rush: LAD Intervals: Normal OK, Prolonged QT QRS: Normal Ischemia: Normal ST segments - Labs Labs: Laboratory Tests 02/28/24 02/28/24 02/28/24 13:41 13:41 13:41 WBC 0.2 L* RBC 2.30 L Hgb 6.9 L* Hct 21.7 L MCV 94.3 MCH 30.0 MCHC 31.8 L RDW 17.9 H Plt Count 12 L* MPV 12.7 H Neut # (Auto) Not Reportable Lymph # (Auto) Not Reportable [place] # (Auto) Not Reportable Eos # (Auto) Not Reportable Baso # (Auto) Not Reportable Absolute Nucleated RBC Not Reportable Total Counted 25 Band Neuts % (Manual) 0 Reactive Lymphs % (Man) 8 Abnorm Lymph % (Manual) 0 Nucleated RBC % Not Reportable Neutrophils # (Manual) 0.0 L* Lymphocytes # (Manual) 0.2 L Monocytes # (Manual) 0.0 Eosinophils # (Manual) 0.0 Basophils # (Manual) 0.0 Differential Comment MANUAL DIFFERENTIAL RBC Morph Micro Appear 1+ SCHISTOCYTES PT 15.0 H INR 1.4 H Sodium 131 L Potassium 3.9 Chloride 101 Carbon Dioxide 23 Anion Gap 7.0 BUN 16 Creatinine 0.7 Estimated GFR (MDRD) 83 L Glucose 100 Lactic Acid Calcium 8.6 Magnesium 1.7 Total Bilirubin 1.3 H AST 11 ALT 6 L Alkaline Phosphatase 52 Total Protein 6.6 Albumin 3.8 Globulin 2.8 Albumin/Globulin Ratio 1.4 Blood Type Antibody Screen Crossmatch IS Only 02/28/24 02/28/24 15:12 17:21 WBC RBC Hgb Hct MCV MCH MCHC RDW Plt Count MPV Neut # (Auto) Lymph # (Auto) [place] # (Auto) Eos # (Auto) Baso # (Auto) Absolute Nucleated RBC Total Counted Band Neuts % (Manual) Reactive Lymphs % (Man) Abnorm Lymph % (Manual) Nucleated RBC % Neutrophils # (Manual) Lymphocytes # (Manual) Monocytes # (Manual) Eosinophils # (Manual) Basophils # (Manual) Differential Comment RBC Morph Micro Appear PT INR Sodium Potassium Chloride Carbon Dioxide Anion Gap BUN Creatinine Estimated GFR (MDRD) Glucose Lactic Acid 0.7 Calcium Magnesium Total Bilirubin AST ALT Alkaline Phosphatase Total Protein Albumin Globulin Albumin/Globulin Ratio Blood Type O POSITIVE Antibody Screen NEGATIVE Crossmatch IS Only See Detail PD Medical Decision Making - ED course ED course: She has AML and had a syncopal episode. She has petechiae all over. Lab work demonstrates total white count of 200, hemoglobin of 6.9 which is actually stable from the last value of 6.7, and fairly stable thrombocytopenia 12,000. Given the above [facility]ology was called for consult and potential transfer versus consideration for transfusion but noting we do not carry platelets at 2:05 PM. At 2:50 PM I was connected with a Dr. Bond and the case was presented. 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 De La Cruz is on-call and refused to consult. I spoke with Dr. oCbb, our on-call oncologist who feels that patient would benefit from irradiated single units of blood and platelets. Subsequently I was trying to get her an outpatient order through the [facility] for platelets but the grocery store manager called me back after chart review and noted that the patient had had some reactions with previous platelet infusions here and her prior oncologist, Dr. Mcelroy felt that if she did need platelets she should go to [facility]. Subsequently I discussed this with the patient and she says she is refusing to go to [facility] for platelets. Her platelets have been stably low for some time so probably the blood is more important given the recent syncope. Prior to blood being hung at about 5 PM was reported to me by the nurse that now she has a fever of 39. Since this is "neutropenic fever" we will add blood cultures, lactate, respiratory panel, chest x-ray, and give IV cefepime and [facility] is called again for transfer now that she clearly does need admission. Excepted to [facility] at 6:[address] Miguel Forman pending bed availability which may or may be some delay to. Departure - Departure Disposition: 02 Transfer Acute Care Hosp Clinical Impression: Neutropenic fever, Drug-induced pancytopenia, Syncope Condition: Serious
[2024-02-28 13:49] LABS: HCT - HEMATOCRIT 21.7 % (37.0-47.0); MEAN CORPUSCULAR HGB CONC 31.8 g/dL (32.0-36.0); MEAN CORPUSCULAR VOLUME 94.3 fL (81.0-99.0); MEAN PLATELET VOLUME 12.7 fL (7.9-10.8); RED CELL DISTRIBUTION WIDTH 17.9 % (12.0-15.0)
[2024-02-28 13:52] LABS: MAGNESIUM 1.7 mg/dL (1.7-2.3)
[2024-02-28 13:56] LABS: HGB - HEMOGLOBIN 6.9 g/dL (12.0-16.0); PLT - PLATELET COUNT 12 10^3/uL (130-450); WHITE BLOOD COUNT 0.2 x10^3/uL (4.8-10.8)
[2024-02-28 13:59] LABS: ALBUMIN 3.8 g/dL (3.2-5.5); ALBUMIN/GLOBULIN RATIO 1.4 (1.0-2.2); BILIRUBIN,TOTAL 1.3 mg/dL (0.2-1.0); CALCIUM 8.6 mg/dL (8.5-10.3); CREATININE 0.7 mg/dL (0.6-1.3); POTASSIUM 3.9 mmol/L (3.5-4.5); TOTAL PROTEIN 6.6 g/dL (6.4-8.9)
[2024-02-28 14:07] LABS: INR 1.4 (0.8-1.2)
[2024-02-28 14:09] LABS: ABNORMAL LYMPHS % (MANUAL) 0 %; BAND NEUTROPHILS % (MANUAL) 0 %
[2024-02-28 14:19] LABS: LYMPHOCYTES # (MANUAL) 0.2 10^3/uL (1.5-3.5); LYMPHOCYTES % (MANUAL) 76 %; REACTIVE LYMPHS % (MANUAL) 8 %
[2024-02-28 14:20] LABS: DIFFERENTIAL COMMENT MANUAL DIFFERENTIAL
--- NOTE | 2024-02-28 17:35 | XRAY Report ---
PROCEDURE: Chest 1V INDICATIONS: Neutropenic fever TECHNIQUE: One view of the chest was acquired. COMPARISON: Chest x-ray 12/29/2022 FINDINGS: Surgical changes and devices: None. Lungs and pleura: Hyperinflation. No pleural effusions or pneumothorax. Lungs are clear. Mediastinum: Aortic vascular calcifications. Mediastinal contours appear normal. Heart size is norm al. Bones and chest wall: No suspicious bony lesions. Overlying soft tissues appear unremarkable. Иван ateral axillary vascular calcifications. IMPRESSION: No acute cardiothoracic process. Reviewed by: Keon Rivas MD on 02/28/2024 5:33 PM PDT Approved by: Keon Rivas MD on 02/28/2024 5:33 PM PDT Station ID: [id number]
[2024-02-28] MEDS: CEFEPIME 1 GM in SODIUM CHLORIDE 0.9% MINIBAG 100 ML IV STA (18:04)
[2024-02-28 19:26] LABS: B. PARAPERTUSSIS- RESP PCR PAN NOT DETECTED; B. PERTUSSIS- RESP PCR PANEL NOT DETECTED; C. PNEUMONIAE- RESP PCR PANEL NOT DETECTED; CORONAVIRUS 229E-RESP PCR NOT DETECTED; CORONAVIRUS HKU1-RESP PCR NOT DETECTED; CORONAVIRUS NL63-RESP PCR NOT DETECTED; CORONAVIRUS OC43-RESP PCR NOT DETECTED; HUMAN METAPNEUMOVIRUS NOT DETECTED; INFLUENZA A- RESP PCR PANEL NOT DETECTED; INFLUENZA B - RESP PCR PANEL NOT DETECTED; M. PNEUMONIAE- RESP PCR PANEL NOT DETECTED; PARAINFLUENZA VIRUS 1 NOT DETECTED; PARAINFLUENZA VIRUS 2 NOT DETECTED; PARAINFLUENZA VIRUS 3 NOT DETECTED; PARAINFLUENZA VIRUS 4 NOT DETECTED; RHINOVIRUS/ENTEROVIRUS NOT DETECTED; RSV- RESP PCR PANEL NOT DETECTED; SARS-CoV-2 -RESP PCR PANEL NOT DETECTED
[2024-02-28] MEDS: LORATADINE 10 MG TABLET PO STA (20:41)
[2024-02-28 21:41] LABS: BILIRUBIN,URINE NEGATIVE (NEGATIVE); GLUCOSE, URINE (UA) NEGATIVE (NEGATIVE); KETONES,URINE (UA) NEGATIVE (NEGATIVE); LEUKOCYTE ESTERASE, URINE NEGATIVE (NEGATIVE); NITRITE,URINE NEGATIVE (NEGATIVE); OCCULT BLOOD,URINE NEGATIVE (NEGATIVE); PROTEIN,URINE NEGATIVE (NEGATIVE); UROBILINOGEN,URINE 2 E.U./dL (NORMAL)
[2024-02-28 21:46] LABS: CLARITY,URINE CLEAR (CLEAR)
[2024-02-29] MEDS: CEFEPIME 1 GM in SODIUM CHLORIDE 0.9% MINIBAG 100 ML IV SCH (01:49)
--- NOTE | 2024-02-29 04:35 | ED Physician Documentation ---
ED Addendum - Addendum Addendum: 02/29/24 04:34 Looking up on up-to-date and [facility], the dosing on cefepime for neutropenic neutropenic fever with creatinine clearance GFR greater than 60 was 1 to 2 g every 8 hours. I adjusted the dosing for that. The patient remains resting in no apparent problems overnight. Most recent vitals are normal. Still awaiting notification for bed acceptance at other facilities.
[2024-02-29] MEDS ORDERED: CEFEPIME 1 GM in SODIUM CHLORIDE 0.9% MINIBAG 100 ML IV SCH (06:00)
[2024-02-29 07:38] LABS: HGB - HEMOGLOBIN 7.7 g/dL (12.0-16.0); LYMPHOCYTES % (AUTO) 95.3 %; MEAN CORPUSCULAR HEMOGLOBIN 30.3 pg (27.0-31.0); MEAN CORPUSCULAR HGB CONC 33.5 g/dL (32.0-36.0); MEAN CORPUSCULAR VOLUME 90.6 fL (81.0-99.0); MEAN PLATELET VOLUME 11.1 fL (7.9-10.8); NEUTROPHILS % (AUTO) 4.7 %; PLT - PLATELET COUNT 42 10^3/uL (130-450); RED BLOOD COUNT 2.54 10^6/uL (4.20-5.40); RED CELL DISTRIBUTION WIDTH 17.2 % (12.0-15.0)
[2024-02-29 07:43] LABS: WHITE BLOOD COUNT 0.4 x10^3/uL (4.8-10.8)
[2024-02-29 07:44] LABS: SLIDE REVIEW? Indicated
[2024-02-29 07:52] LABS: ABNORMAL LYMPHS % (MANUAL) 0 %; BAND NEUTROPHILS % (MANUAL) 0 %; CALCIUM 8.5 mg/dL (8.5-10.3); CREATININE 0.5 mg/dL (0.6-1.3); POTASSIUM 3.6 mmol/L (3.5-4.5)
[2024-02-29 08:11] LABS: LYMPHOCYTES # (MANUAL) 0.4 10^3/uL (1.5-3.5); LYMPHOCYTES % (MANUAL) 92 %; NUCLEATED RBC (MANUAL) 2 %; REACTIVE LYMPHS % (MANUAL) 8 %
[2024-02-29 08:12] LABS: DIFFERENTIAL COMMENT MANUAL DIFFERENTIAL
[2024-02-29] MEDS: LORATADINE 10 MG TABLET PO SCH (08:45)
--- NOTE | 2024-02-29 09:49 | ED Physician Documentation ---
ED Addendum - Addendum Addendum: 02/29/24 09:49 Seen and examined at the bedside this morning. She does seem very mildly confused but has been afebrile this morning. She has no specific complaints though. Her total white count improved from 200 up to 400, but her ANC remains 0.0. Chemistry panel is unremarkable. She had an appropriate increase in her hemoglobin and platelet counts after 1 unit each of transfusions. Still waiting on bed availability at [facility], no update on that at this juncture.
--- NOTE | 2024-02-29 15:10 | PHARMACY PROGRESS NOTE ---
- Best Possible Medication History Admit Date and Time: Processed by: Pharmacy Medications reviewed in ED?: Yes Medication History completed: Yes Patient Interview: Completed Secondary Source(s): Pharmacy records, Insurance records As the person ultimately responsible for medication therapy, providers are able to order a medication from an existing home medication list in [facility] via the "Reconcile Routine" prior to Confirmation of that medication by administrative support assoc. Such practice is discouraged except when the physician, in their clinical judgment, deems that a medical need exists for a medication without regard to previous use.
[2024-02-29] MEDS: ACETAMINOPHEN 325 MG TABLET PO PRN (15:27)
[2024-02-29 15:35] VITALS: BP 153/83; O2SAT 97
== END 2024-02-29 15:50 | disposition short-term general hospital (02) ==
LOC: EDUNIT# → ED 13:08
DX: R55 Syncope and collapse (principal); D70.9 Neutropenia, unspecified; R50.81 Fever presenting with conditions classified elsewhere; D61.811 Other drug-induced pancytopenia; C92.00 Acute myeloblastic leukemia, not having achieved remission; Z79.899 Other long term (current) drug therapy; Z75.1 Person awaiting admission to adequate facility elsewhere
CPT/HCPCS: 36415; 36430; 71045; 80048; 80053; 81003; 83605; 83735; 85025; 85610; 86850; 86900; 86901; 86920; 87040; 87633; 93005; 96365; 96366; 99285; A9270; P9037; P9040; 81001; 87086